=== PATIENT | female | born 1985 | race Caucasian/White ===

== ENCOUNTER 2018-02-23 18:58 | Emergency (ER) | payer BC, OTHER ==
[2018-02-23] MEDS ORDERED: SODIUM CHLORIDE 0.9% 1,000 ML IV ONE ×2 (19:43→23:10)
[2018-02-23 20:33] LABS: Basophils # (A) 0.1 k/uL (0-0.2); Basophils % (A) 1 %; Eosinophils # (A) 0.4 k/uL (0-0.7); Eosinophils % (A) 4 %; HCT 39.8 % (34.0-46.0); HGB 13.3 gm/dL (11.4-16.0); Lymphocytes # (A) 3.4 k/uL (1.0-4.8); Lymphocytes % (A) 32 %; MCH 27.8 pg (25.0-35.0); MCHC 33.5 g/dL (31.0-37.0); Mean Platelet Volume 7.7; Monocytes # (A) 0.7 k/uL (0-1.0); Monocytes % (A) 7 %; Neutrophils # (A) 5.7 k/uL (1.3-7.7); Neutrophils % (A) 53 %; Platelet Count 358 k/uL (150-450); RBC 4.79 m/uL (3.80-5.40); RDW 13.9 % (11.5-15.5); WBC 10.6 k/uL (3.8-10.6)
[2018-02-23 20:43] LABS: ALT 87 U/L (9-52); AST 48 U/L (14-36); Acetaminophen <10.0 ug/mL; Albumin 4.4 g/dL (3.5-5.0); Alkaline Phosphatase 90 U/L (38-126); Anion Gap 11 mmol/L; Blood Urea Nitrogen 11 mg/dL (7-17); Calcium 9.3 mg/dL (8.4-10.2); Carbon Dioxide 20 mmol/L (22-30); Chloride 110 mmol/L (98-107); Glucose 134 mg/dL (74-99); Potassium 4.4 mmol/L (3.5-5.1); Salicylate <1.0 mg/dL; Sodium 141 mmol/L (137-145); Total Bilirubin 0.3 mg/dL (0.2-1.3); Total Protein 7.7 g/dL (6.3-8.2)
[2018-02-23] MEDS ORDERED: ZIPRASIDONE 20 MG VIAL IM STA (20:56)
[2018-02-23] MEDS ORDERED: diphenhydrAMINE 50 MG/ML 1 ML VIAL IM STA (20:57)
[2018-02-23] MEDS ORDERED: LORazepam 2 MG/ML INJ IM STA (20:57)
--- NOTE | 2018-02-23 21:48 | ED ---
Psych HPI - General Source: patient, family Mode of arrival: ambulatory <Ligia Iglesias - Last Filed: 02/24/18 04:18> <Joseph Clark - Last Filed: 02/24/18 15:46> <Héctor Clifton - Last Filed: 02/25/18 00:14> <Phil Anaya - Last Filed: 02/25/18 09:06> - General Chief Complaint: Psychiatric Symptoms Stated Complaint: Mental Health,Overdose Time Seen by Provider: 02/23/18 19:09 - History of Present Illness Initial Comments: 32-year-old female past HISTORY of previous suicidal ideations and attempts as well as bipolar disorder, ETOH abuse, depression and PTSD presents today for chief complaint of suicidal ideations. Mother states that patient Has been 4 days sober, she began drinking Saturday. She states that yesterday she attempted to visit patient however she had not got a response from patient who was staying at her father's house. Today she called patient who told mother not to come over. Patient mother presented to father's house, states patient had a fifth of alcohol that was 1/3 full. She poured out the ETOH and patient then locked herself in a room cutting the right side of her neck. Father and mother brought pt to emergency department for evaluation. Upon arrival pt is cryng uncontrollable. pt refuses to answer questions, pt is a poor historian, stating one minute that she took pills the next that she didnt. Wont specify what type of pills. Pt does not appear to be in respiratory distress. Patient denies any current or recent homicidal thoughts, fever, chills, shortness of breath, chest pain, back pain, abdominal pain, nausea or vomiting, numbness or tingling, dysuria or hematuria, constipation or diarrhea, headaches or visual changes, or any other complaints. (Ligia Iglesias) - Related Data Home Medications Medication Instructions Recorded Confirmed Desvenlafaxine [Pristiq ER] 100 mg PO DAILY 02/23/18 02/23/18 LORazepam [Ativan] 1 mg PO DAILY 02/23/18 02/23/18 LORazepam [Ativan] 2 mg PO HS 02/23/18 02/23/18 Levothyroxine Sodium [Synthroid] 125 mcg PO DAILY 02/23/18 02/23/18 Lisinopril 30 mg PO DAILY 02/23/18 02/23/18 Mirtazapine [Remeron] 15 mg PO HS 02/23/18 02/23/18 OXcarbazepine [Trileptal] 150 mg PO TID 02/23/18 02/23/18 Paliperidone [Invega] 3 mg PO BID 02/23/18 02/23/18 Pantoprazole Sodium [Protonix] 20 mg PO DAILY 02/23/18 02/23/18 diphenhydrAMINE HCL [Benadryl] 50 mg PO HS PRN 02/23/18 02/23/18 Allergies Allergy/AdvReac Type Severity Reaction Status Date / Time asenapine maleate Allergy Anaphylaxis Verified 02/23/18 21:26 [From Saphris] risperidone Allergy Unknown Verified 02/23/18 21:26 Review of Systems ROS Other: All systems not noted in ROS Statement are negative. Constitutional: Denies: fever, chills Eyes: Denies: eye pain ENT: Denies: ear pain, throat pain Respiratory: Denies: cough, dyspnea Cardiovascular: Denies: chest pain, palpitations Endocrine: Denies: fatigue Gastrointestinal: Denies: abdominal pain, nausea, vomiting, diarrhea, constipation Genitourinary: Denies: urgency, dysuria, frequency, hematuria Musculoskeletal: Denies: back pain Skin: Denies: rash, lesions Neurological: Denies: headache, weakness Psychiatric: Reports: anxiety, depression, suicidal thoughts. Denies: homicidal thoughts <Ligia Iglesias - Last Filed: 02/24/18 04:18> ROS Other: All systems not noted in ROS Statement are negative. <Joseph Clark - Last Filed: 02/24/18 15:46> ROS Other: All systems not noted in ROS Statement are negative. <Héctor Clifton - Last Filed: 02/25/18 00:14> ROS Other: All systems not noted in ROS Statement are negative. <Phil Anaya - Last Filed: 02/25/18 09:06> ROS Statement: Those systems with pertinent positive or pertinent negative responses have been documented in the HPI. Past Medical History Past Medical History: Hypertension, Thyroid Disorder Additional Past Medical History / Comment(s): alcoholism History of Any Multi-Drug Resistant Organisms: None Reported Past Surgical History: No Surgical Hx Reported Past Psychological History: Anxiety, Bipolar Smoking Status: Never smoker Past Alcohol Use History: Abuse, Daily Past Drug Use History: None Reported - Past Family History Father Additional Family Medical History / Comment(s): Father is alive at age 60 with no major medical problems. Mother Additional Family Medical History / Comment(s): Mother is alive at age 55 with no major medical problems. Brother(s) Additional Family Medical History / Comment(s): Patient does not have any brothers. Sister(s) Additional Family Medical History / Comment(s): She has one sister with no major medical problems. Patient does not have any children. <Ligia Iglesias James - Last Filed: 02/24/18 04:18> General Exam Limitations: no limitations <Francisca Iglesiashua Ramirez - Last Filed: 02/24/18 04:18> <Joseph Clark - Last Filed: 02/24/18 15:46> <Héctor Clifton - Last Filed: 02/25/18 00:14> <Phil Anaya - Last Filed: 02/25/18 09:06> - General Exam Comments Initial Comments: General: The patient is awake and alert, pt crying uncontrollably, thrashing around, patient is DNR written on the left forearm Eye: +3 mm pupils are equal, round and reactive to light, extra-ocular movements are intact. No nystagmus. There is normal conjunctiva bilaterally. No signs of icterus. Ears, nose, mouth and throat: There are moist mucous membranes and no oral lesions. Neck: The neck is supple, there is no tenderness or JVD. 3 superficial linear cuts on neck, scabbed over. No active bleeding. Superficial. Cardiovascular: There is a regular rate and rhythm. No murmur, rub or gallop is appreciated. Respiratory: Lungs are clear to auscultation, respirations are non-labored, breath sounds are equal. No wheezes, stridor, rales, or rhonchi. Gastrointestinal: Obese, Soft, non-distended, non-tender abdomen without masses or organomegaly noted. There is no rebound or guarding present. No CVA tenderness. Bowel sounds are unremarkable. Musculoskeletal: Normal ROM, no tenderness. Strength 5/5. Sensation intact. Radial pulses equal bilaterally 2+. Neurological: A&O x 3. CN II-XII intact, There are no obvious motor or sensory deficits. Coordination appears grossly intact. Speech is normal. Skin: Skin is warm and dry and no rashes or lesions are noted. Superficial cuts along the right side of neck. Psychiatric: Thrashing around, sobbing, wont make eye contact a long (Ligia Iglesias) Course <Ligia Iglesias - Last Filed: 02/24/18 04:18> <Joseph Clark - Last Filed: 02/24/18 15:46> <Héctor Clifton - Last Filed: 02/25/18 00:14> <Phil Anaya - Last Filed: 02/25/18 09:06> Vital Signs 02/23/18 02/23/18 02/23/18 19:03 21:09 23:13 Temperature 98.4 F Pulse Rate 131 H 128 H 113 H Respiratory 14 22 16 Rate Blood Pressure 118/79 115/67 O2 Sat by Pulse 98 95 Oximetry 02/24/18 02/24/18 02/24/18 01:47 05:32 10:32 Temperature 99.2 F Pulse Rate 113 H 96 102 H Respiratory 17 Rate Blood Pressure 143/66 O2 Sat by Pulse 95 Oximetry - Reevaluation(s) Reevaluation #1: Pt pulled out IV, screaming, attempting to leave. Dr. Llanes evaluated pt face- to-face, restaints placed. Pt given IM benadryl and 2mg Ativan IM. (Ligia Iglesias) 02/25/18 09:05 The patient rested comfortably throughout the evening and early childhood special educator. I did fill out a new physician clinical certification. Patient is pending transfer ( Phil Anaya) Reevaluation #2: Lactic 2.5, pt refuses IV, pt still thrashing around bed- will rbolus pt when pt allows IV placement. 20mg IM geodone administered. Pt tachycardic however refused EKG, will not sit still. Remains tachy ~120 (Ligia Iglesias) Reevaluation #3: Restaints removed, pt sleeping. EKG obtained, sinus tachycardia 02/23/18 (Ligia Iglesias) Reevaluation #4: Pt resting comfortably, restraints removed. Pt compliant. Repeat lactic 1.1 after fluid bolus. Pt appears well. Medically cleared. EPS aware. 02/24/18 01:34 (Ligia Iglesias) Procedures - Restraint - Face to Face Restraint Occurrence 1 Patient's Immediate Situation: Endangers self safety, Endangers others' safety, Endangers staff safety Patient's Reaction to the Intervention: Uncooperative, Angry, Hostile, Combative Patient's Medical & Behavioral Condition: Agitated, Suicidal thoughts Need to Continue or Terminate Restraint or Seclusion: Terminate Face to Face Eval of Restraint Date: 02/24/18 Face to Face Eval of Restraint Time: 20:45 <Ligia Iglesias - Last Filed: 02/24/18 04:18> Medical Decision Making - Lab Data Result diagrams: 02/23/18 19:54 02/23/18 19:54 <Ligia Iglesias - Last Filed: 02/24/18 04:18> - Lab Data Result diagrams: 02/23/18 19:54 02/23/18 19:54 <Joseph Clark - Last Filed: 02/24/18 15:46> - Lab Data Result diagrams: 02/23/18 19:54 02/23/18 19:54 <Héctor Clifton - Last Filed: 02/25/18 00:14> - Lab Data Result diagrams: 02/23/18 19:54 02/23/18 19:54 <Phil Anaya - Last Filed: 02/25/18 09:06> - Medical Decision Making Pt with suicidal thoughts/attempt presenting with mom for evaluation. Pt states she ingested pills initially then denied. Wont state what type of pills. Salicytate and acetaminophen (-). Pt had to be restrained when she became combative in attempt to leave. Dr. Llanes did face to face prior to restraints. Lactic 2.5. Repeat 1.1 after bolus. Pt became cooperative, resting comfortably. Restraints removed. EPS contacted after pt medically cleared. Recommended admission, no available beds. Pt pending transfer. I agree with admission as pt is a risk to herself. (Ligia Iglesias) Dr. Clifton will take over the care of this patient at 5pm (Joseph Clark) Psychiatric nurse making efforts to get the patient admitted here or elsewhere. The patient show a different county and that they want the patient to go to another facility. They are working on the problem as well. Vital signs stable. Dr. Clifton (Héctor Clifton) - Lab Data Lab Results 02/23/18 02/23/18 02/23/18 Range/Units 19:54 19:54 19:54 WBC 10.6 (3.8-10.6) k/uL RBC 4.79 (3.80-5.40) m/uL Hgb 13.3 (11.4-16.0) gm/dL Hct 39.8 (34.0-46.0) % MCV 83.0 (80.0-100.0) fL MCH 27.8 (25.0-35.0) pg MCHC 33.5 (31.0-37.0) g/dL RDW 13.9 (11.5-15.5) % Plt Count 358 (150-450) k/uL Neutrophils % 53 % Lymphocytes % 32 % Monocytes % 7 % Eosinophils % 4 % Basophils % 1 % Neutrophils # 5.7 (1.3-7.7) k/uL Lymphocytes # 3.4 (1.0-4.8) k/uL Monocytes # 0.7 (0-1.0) k/uL Eosinophils # 0.4 (0-0.7) k/uL Basophils # 0.1 (0-0.2) k/uL Sodium 141 (137-145) mmol/L Potassium 4.4 (3.5-5.1) mmol/L Chloride 110 H (98-107) mmol/L Carbon Dioxide 20 L (22-30) mmol/L Anion Gap 11 mmol/L BUN 11 (7-17) mg/dL Creatinine 0.78 (0.52-1.04) mg/dL Est GFR (CKD-EPI)AfAm >90 (>60 ml/min/1.73 sqM) Est GFR (CKD-EPI)NonAf >90 (>60 ml/min/1.73 sqM) Glucose 134 H (74-99) mg/dL Lactic Ac Sepsis Rflx Plasma Lactic Acid Prince 2.5 H* (0.7-2.0) mmol/L Calcium 9.3 (8.4-10.2) mg/dL Total Bilirubin 0.3 (0.2-1.3) mg/dL AST 48 H (14-36) U/L ALT 87 H (9-52) U/L Alkaline Phosphatase 90 (38-126) U/L Total Protein 7.7 (6.3-8.2) g/dL Albumin 4.4 (3.5-5.0) g/dL Urine Color Urine Appearance (Clear) Urine pH (5.0-8.0) Ur Specific [place] (1.001-1.035) Urine Protein (Negative) Urine Glucose (UA) (Negative) Urine Ketones (Negative) Urine Blood (Negative) Urine Nitrite (Negative) Urine Bilirubin (Negative) Urine Urobilinogen (<2.0) mg/dL Ur Leukocyte Esterase (Negative) Urine HCG, Qual (Not Detectd) Salicylates <1.0 mg/dL Urine Opiates Screen (NotDetected) Ur Oxycodone Screen (NotDetected) Urine Methadone Screen (NotDetected) Ur Propoxyphene Screen (NotDetected) Acetaminophen <10.0 ug/mL Ur Barbiturates Screen (NotDetected) U Tricyclic Antidepress (NotDetected) Ur Phencyclidine Scrn (NotDetected) Ur Amphetamines Screen (NotDetected) U Methamphetamines Scrn (NotDetected) U Benzodiazepines Scrn (NotDetected) Urine Cocaine Screen (NotDetected) U Marijuana (THC) Screen (NotDetected) 02/23/18 02/23/18 02/23/18 Range/Units 20:51 23:20 23:20 WBC (3.8-10.6) k/uL RBC (3.80-5.40) m/uL Hgb (11.4-16.0) gm/dL Hct (34.0-46.0) % MCV (80.0-100.0) fL MCH (25.0-35.0) pg MCHC (31.0-37.0) g/dL RDW (11.5-15.5) % Plt Count (150-450) k/uL Neutrophils % % Lymphocytes % % Monocytes % % Eosinophils % % Basophils % % Neutrophils # (1.3-7.7) k/uL Lymphocytes # (1.0-4.8) k/uL Monocytes # (0-1.0) k/uL Eosinophils # (0-0.7) k/uL Basophils # (0-0.2) k/uL Sodium (137-145) mmol/L Potassium (3.5-5.1) mmol/L Chloride (98-107) mmol/L Carbon Dioxide (22-30) mmol/L Anion Gap mmol/L BUN (7-17) mg/dL Creatinine (0.52-1.04) mg/dL Est GFR (CKD-EPI)AfAm (>60 ml/min/1.73 sqM) Est GFR (CKD-EPI)NonAf (>60 ml/min/1.73 sqM) Glucose (74-99) mg/dL Lactic Ac Sepsis Rflx Y Plasma Lactic Acid Prince (0.7-2.0) mmol/L Calcium (8.4-10.2) mg/dL Total Bilirubin (0.2-1.3) mg/dL AST (14-36) U/L ALT (9-52) U/L Alkaline Phosphatase (38-126) U/L Total Protein (6.3-8.2) g/dL Albumin (3.5-5.0) g/dL Urine Color Yellow Urine Appearance Clear (Clear) Urine pH 5.5 (5.0-8.0) Ur Specific [place] 1.014 (1.001-1.035) Urine Protein Trace H (Negative) Urine Glucose (UA) Negative (Negative) Urine Ketones Negative (Negative) Urine Blood Negative (Negative) Urine Nitrite Negative (Negative) Urine Bilirubin Negative (Negative) Urine Urobilinogen <2.0 (<2.0) mg/dL Ur Leukocyte Esterase Negative (Negative) Urine HCG, Qual Not Detected (Not Detectd) Salicylates mg/dL Urine Opiates Screen Not Detected (NotDetected) Ur Oxycodone Screen Not Detected (NotDetected) Urine Methadone Screen Not Detected (NotDetected) Ur Propoxyphene Screen Not Detected (NotDetected) Acetaminophen ug/mL Ur Barbiturates Screen Not Detected (NotDetected) U Tricyclic Antidepress Not Detected (NotDetected) Ur Phencyclidine Scrn Not Detected (NotDetected) Ur Amphetamines Screen Not Detected (NotDetected) U Methamphetamines Scrn Not Detected (NotDetected) U Benzodiazepines Scrn Detected H (NotDetected) Urine Cocaine Screen Not Detected (NotDetected) U Marijuana (THC) Screen Detected H (NotDetected) 02/24/18 Range/Units 00:11 WBC (3.8-10.6) k/uL RBC (3.80-5.40) m/uL Hgb (11.4-16.0) gm/dL Hct (34.0-46.0) % MCV (80.0-100.0) fL MCH (25.0-35.0) pg MCHC (31.0-37.0) g/dL RDW (11.5-15.5) % Plt Count (150-450) k/uL Neutrophils % % Lymphocytes % % Monocytes % % Eosinophils % % Basophils % % Neutrophils # (1.3-7.7) k/uL Lymphocytes # (1.0-4.8) k/uL Monocytes # (0-1.0) k/uL Eosinophils # (0-0.7) k/uL Basophils # (0-0.2) k/uL Sodium (137-145) mmol/L Potassium (3.5-5.1) mmol/L Chloride (98-107) mmol/L Carbon Dioxide (22-30) mmol/L Anion Gap mmol/L BUN (7-17) mg/dL Creatinine (0.52-1.04) mg/dL Est GFR (CKD-EPI)AfAm (>60 ml/min/1.73 sqM) Est GFR (CKD-EPI)NonAf (>60 ml/min/1.73 sqM) Glucose (74-99) mg/dL Lactic Ac Sepsis Rflx Plasma Lactic Acid Prince 1.1 (0.7-2.0) mmol/L Calcium (8.4-10.2) mg/dL Total Bilirubin (0.2-1.3) mg/dL AST (14-36) U/L ALT (9-52) U/L Alkaline Phosphatase (38-126) U/L Total Protein (6.3-8.2) g/dL Albumin (3.5-5.0) g/dL Urine Color Urine Appearance (Clear) Urine pH (5.0-8.0) Ur Specific [place] (1.001-1.035) Urine Protein (Negative) Urine Glucose (UA) (Negative) Urine Ketones (Negative) Urine Blood (Negative) Urine Nitrite (Negative) Urine Bilirubin (Negative) Urine Urobilinogen (<2.0) mg/dL Ur Leukocyte Esterase (Negative) Urine HCG, Qual (Not Detectd) Salicylates mg/dL Urine Opiates Screen (NotDetected) Ur Oxycodone Screen (NotDetected) Urine Methadone Screen (NotDetected) Ur Propoxyphene Screen (NotDetected) Acetaminophen ug/mL Ur Barbiturates Screen (NotDetected) U Tricyclic Antidepress (NotDetected) Ur Phencyclidine Scrn (NotDetected) Ur Amphetamines Screen (NotDetected) U Methamphetamines Scrn (NotDetected) U Benzodiazepines Scrn (NotDetected) Urine Cocaine Screen (NotDetected) U Marijuana (THC) Screen (NotDetected) - EKG Data EKG Comments: A 12-lead EKG was performed and shows the following: Rate is 120, and rhythm is normal sinus. There are normal QRS complexes and normal R-wave progression. ST segments have no elevation or depression, and MI segments appear normal. Sinus tachycardia. (Ligia Iglesias) Disposition Is patient prescribed a controlled substance at d/c from ED?: No Time of Disposition: 04:03 Decision Date: 02/24/18 Decision Time: 04:03 <Ligia Iglesias - Last Filed: 02/24/18 04:18> <Joseph Clark - Last Filed: 02/24/18 15:46> <Héctor Clifton - Last Filed: 02/25/18 00:14> - Out of Hospital Transfer - Req. Specs Out of Hospital Transfer - Requested Specifics: Psychiatric Non-ICU <Phil Anaya - Last Filed: 02/25/18 09:06> Clinical Impression: Suicidal behavior, Depression, Substance abuse Disposition: TRANSFER TO PSYCH HOSP/UNIT Condition: Stable Referrals: Sandor Castro DO [Primary Care Provider] - 1-2 days
[2018-02-23 23:32] LABS: Appearance,Urine Clear (Clear); Bilirubin,Urine Negative (Negative); Blood,Urine Negative (Negative); Color,Urine Yellow; Glucose,Urine (UA) Negative (Negative); Ketones,Urine Negative (Negative); Leukocyte Esterase,Urine Negative (Negative); Nitrite,Urine Negative (Negative); PH, Urine 5.5 (5.0-8.0); Protein,Urine Trace (Negative); Specific Gravity,Urine 1.014 (1.001-1.035); Urobilinogen,Urine <2.0 mg/dL (<2.0)
[2018-02-23 23:42] LABS: Amphetamine Screen,Urine Not Detected (NotDetected); Barbiturate Screen,Urine Not Detected (NotDetected); Benzodiazepines Screen,Urine Detected (NotDetected); Cocaine Screen,Urine Not Detected (NotDetected); Methadone Screen, Urine Not Detected (NotDetected); Opiate Screen,Urine Not Detected (NotDetected); Oxycodone Screen, Urine Not Detected (NotDetected); Phencyclidine Screen,Urine Not Detected (NotDetected); Tricyclic Antidepressant,Urine Not Detected (NotDetected); Urn Cannabinoid Scrn Detected (NotDetected)
[2018-02-24] MEDS ORDERED: LEVOTHYROXINE 125 MCG TAB PO ONE (14:15)
[2018-02-24] MEDS ORDERED: OXcarbazepine 150 MG TAB PO ONE (14:30)
[2018-02-24] MEDS ORDERED: LISINOPRIL 10 MG TAB PO ONE (14:30)
[2018-02-24] MEDS ORDERED: DESVENLAFAXINE SUCCINATE 50 MG TAB.ER.24H PO ONE (14:30)
[2018-02-24] MEDS ORDERED: PANTOPRAZOLE 40 MG TABLET PO ONE (14:30)
[2018-02-24] MEDS ORDERED: PALIPERIDONE 3 MG TAB.ER.24 PO ONE (14:45)
[2018-02-24] MEDS ORDERED: diphenhydrAMINE 50 MG/ML 1 ML VIAL IM STA (19:03)
[2018-02-24] MEDS ORDERED: LORazepam 2 MG/ML INJ IM STA (19:03)
[2018-02-24] MEDS ORDERED: LORazepam 1 MG TAB PO SCH (21:00)
[2018-02-24] MEDS ORDERED: diphenhydrAMINE 25 MG CAP PO PRN (21:00)
[2018-02-24] MEDS ORDERED: MIRTAZAPINE 15 MG TAB PO STA (22:22)
[2018-02-25] MEDS: PALIPERIDONE 3 MG TAB.ER.24 PO SCH ×2 (01:34→10:46)
[2018-02-25] MEDS: OXcarbazepine 150 MG TAB PO SCH ×2 (01:34→10:45)
[2018-02-25] MEDS ORDERED: LEVOTHYROXINE 125 MCG TAB PO SCH (06:30)
[2018-02-25] MEDS ORDERED: LORazepam 1 MG TAB PO SCH (09:00)
[2018-02-25 09:19] VITALS: BP 121/69; PULSE 84; RESP 16; TEMP 98
[2018-02-25] MEDS ORDERED: PANTOPRAZOLE 40 MG TABLET PO SCH (10:15)
[2018-02-25] MEDS ORDERED: DESVENLAFAXINE SUCCINATE 50 MG TAB.ER.24H PO SCH (10:15)
[2018-02-25] MEDS ORDERED: LISINOPRIL 10 MG TAB PO SCH (10:15)
--- NOTE | 2018-02-25 11:38 | ED ---
Medical Decision Making - Medical Decision Making I did fill out transfer forms for the patient she will [facility] going to [facility]. - Lab Data Result diagrams: 02/23/18 19:54 02/23/18 19:54 Lab Results 02/23/18 02/23/18 02/23/18 Range/Units 19:54 19:54 19:54 WBC 10.6 (3.8-10.6) k/uL RBC 4.79 (3.80-5.40) m/uL Hgb 13.3 (11.4-16.0) gm/dL Hct 39.8 (34.0-46.0) % MCV 83.0 (80.0-100.0) fL MCH 27.8 (25.0-35.0) pg MCHC 33.5 (31.0-37.0) g/dL RDW 13.9 (11.5-15.5) % Plt Count 358 (150-450) k/uL Neutrophils % 53 % Lymphocytes % 32 % Monocytes % 7 % Eosinophils % 4 % Basophils % 1 % Neutrophils # 5.7 (1.3-7.7) k/uL Lymphocytes # 3.4 (1.0-4.8) k/uL Monocytes # 0.7 (0-1.0) k/uL Eosinophils # 0.4 (0-0.7) k/uL Basophils # 0.1 (0-0.2) k/uL Sodium 141 (137-145) mmol/L Potassium 4.4 (3.5-5.1) mmol/L Chloride 110 H (98-107) mmol/L Carbon Dioxide 20 L (22-30) mmol/L Anion Gap 11 mmol/L BUN 11 (7-17) mg/dL Creatinine 0.78 (0.52-1.04) mg/dL Est GFR (CKD-EPI)AfAm >90 (>60 ml/min/1.73 sqM) Est GFR (CKD-EPI)NonAf >90 (>60 ml/min/1.73 sqM) Glucose 134 H (74-99) mg/dL Lactic Ac Sepsis Rflx Plasma Lactic Acid Prince 2.5 H* (0.7-2.0) mmol/L Calcium 9.3 (8.4-10.2) mg/dL Total Bilirubin 0.3 (0.2-1.3) mg/dL AST 48 H (14-36) U/L ALT 87 H (9-52) U/L Alkaline Phosphatase 90 (38-126) U/L Total Protein 7.7 (6.3-8.2) g/dL Albumin 4.4 (3.5-5.0) g/dL Urine Color Urine Appearance (Clear) Urine pH (5.0-8.0) Ur Specific [place] (1.001-1.035) Urine Protein (Negative) Urine Glucose (UA) (Negative) Urine Ketones (Negative) Urine Blood (Negative) Urine Nitrite (Negative) Urine Bilirubin (Negative) Urine Urobilinogen (<2.0) mg/dL Ur Leukocyte Esterase (Negative) Urine HCG, Qual (Not Detectd) Salicylates <1.0 mg/dL Urine Opiates Screen (NotDetected) Ur Oxycodone Screen (NotDetected) Urine Methadone Screen (NotDetected) Ur Propoxyphene Screen (NotDetected) Acetaminophen <10.0 ug/mL Ur Barbiturates Screen (NotDetected) U Tricyclic Antidepress (NotDetected) Ur Phencyclidine Scrn (NotDetected) Ur Amphetamines Screen (NotDetected) U Methamphetamines Scrn (NotDetected) U Benzodiazepines Scrn (NotDetected) Urine Cocaine Screen (NotDetected) U Marijuana (THC) Screen (NotDetected) 02/23/18 02/23/18 02/23/18 Range/Units 20:51 23:20 23:20 WBC (3.8-10.6) k/uL RBC (3.80-5.40) m/uL Hgb (11.4-16.0) gm/dL Hct (34.0-46.0) % MCV (80.0-100.0) fL MCH (25.0-35.0) pg MCHC (31.0-37.0) g/dL RDW (11.5-15.5) % Plt Count (150-450) k/uL Neutrophils % % Lymphocytes % % Monocytes % % Eosinophils % % Basophils % % Neutrophils # (1.3-7.7) k/uL Lymphocytes # (1.0-4.8) k/uL Monocytes # (0-1.0) k/uL Eosinophils # (0-0.7) k/uL Basophils # (0-0.2) k/uL Sodium (137-145) mmol/L Potassium (3.5-5.1) mmol/L Chloride (98-107) mmol/L Carbon Dioxide (22-30) mmol/L Anion Gap mmol/L BUN (7-17) mg/dL Creatinine (0.52-1.04) mg/dL Est GFR (CKD-EPI)AfAm (>60 ml/min/1.73 sqM) Est GFR (CKD-EPI)NonAf (>60 ml/min/1.73 sqM) Glucose (74-99) mg/dL Lactic Ac Sepsis Rflx Y Plasma Lactic Acid Prince (0.7-2.0) mmol/L Calcium (8.4-10.2) mg/dL Total Bilirubin (0.2-1.3) mg/dL AST (14-36) U/L ALT (9-52) U/L Alkaline Phosphatase (38-126) U/L Total Protein (6.3-8.2) g/dL Albumin (3.5-5.0) g/dL Urine Color Yellow Urine Appearance Clear (Clear) Urine pH 5.5 (5.0-8.0) Ur Specific [place] 1.014 (1.001-1.035) Urine Protein Trace H (Negative) Urine Glucose (UA) Negative (Negative) Urine Ketones Negative (Negative) Urine Blood Negative (Negative) Urine Nitrite Negative (Negative) Urine Bilirubin Negative (Negative) Urine Urobilinogen <2.0 (<2.0) mg/dL Ur Leukocyte Esterase Negative (Negative) Urine HCG, Qual Not Detected (Not Detectd) Salicylates mg/dL Urine Opiates Screen Not Detected (NotDetected) Ur Oxycodone Screen Not Detected (NotDetected) Urine Methadone Screen Not Detected (NotDetected) Ur Propoxyphene Screen Not Detected (NotDetected) Acetaminophen ug/mL Ur Barbiturates Screen Not Detected (NotDetected) U Tricyclic Antidepress Not Detected (NotDetected) Ur Phencyclidine Scrn Not Detected (NotDetected) Ur Amphetamines Screen Not Detected (NotDetected) U Methamphetamines Scrn Not Detected (NotDetected) U Benzodiazepines Scrn Detected H (NotDetected) Urine Cocaine Screen Not Detected (NotDetected) U Marijuana (THC) Screen Detected H (NotDetected) 02/24/18 Range/Units 00:11 WBC (3.8-10.6) k/uL RBC (3.80-5.40) m/uL Hgb (11.4-16.0) gm/dL Hct (34.0-46.0) % MCV (80.0-100.0) fL MCH (25.0-35.0) pg MCHC (31.0-37.0) g/dL RDW (11.5-15.5) % Plt Count (150-450) k/uL Neutrophils % % Lymphocytes % % Monocytes % % Eosinophils % % Basophils % % Neutrophils # (1.3-7.7) k/uL Lymphocytes # (1.0-4.8) k/uL Monocytes # (0-1.0) k/uL Eosinophils # (0-0.7) k/uL Basophils # (0-0.2) k/uL Sodium (137-145) mmol/L Potassium (3.5-5.1) mmol/L Chloride (98-107) mmol/L Carbon Dioxide (22-30) mmol/L Anion Gap mmol/L BUN (7-17) mg/dL Creatinine (0.52-1.04) mg/dL Est GFR (CKD-EPI)AfAm (>60 ml/min/1.73 sqM) Est GFR (CKD-EPI)NonAf (>60 ml/min/1.73 sqM) Glucose (74-99) mg/dL Lactic Ac Sepsis Rflx Plasma Lactic Acid [place] 1.1 (0.7-2.0) mmol/L Calcium (8.4-10.2) mg/dL Total Bilirubin (0.2-1.3) mg/dL AST (14-36) U/L ALT (9-52) U/L Alkaline Phosphatase (38-126) U/L Total Protein (6.3-8.2) g/dL Albumin (3.5-5.0) g/dL Urine Color Urine Appearance (Clear) Urine pH (5.0-8.0) Ur Specific [place] (1.001-1.035) Urine Protein (Negative) Urine Glucose (UA) (Negative) Urine Ketones (Negative) Urine Blood (Negative) Urine Nitrite (Negative) Urine Bilirubin (Negative) Urine Urobilinogen (<2.0) mg/dL Ur Leukocyte Esterase (Negative) Urine HCG, Qual (Not Detectd) Salicylates mg/dL Urine Opiates Screen (NotDetected) Ur Oxycodone Screen (NotDetected) Urine Methadone Screen (NotDetected) Ur Propoxyphene Screen (NotDetected) Acetaminophen ug/mL Ur Barbiturates Screen (NotDetected) U Tricyclic Antidepress (NotDetected) Ur Phencyclidine Scrn (NotDetected) Ur Amphetamines Screen (NotDetected) U Methamphetamines Scrn (NotDetected) U Benzodiazepines Scrn (NotDetected) Urine Cocaine Screen (NotDetected) U Marijuana (THC) Screen (NotDetected) Disposition Clinical Impression: Suicidal behavior, Depression, Substance abuse Disposition: TRANSFER TO PSYCH HOSP/UNIT Condition: Stable Referrals: Sandor Castro DO [Primary Care Provider] - 1-2 days
== END 2018-02-25 12:15 ==
LOC: EC 18:58
DX: R45.851 Suicidal ideations (principal); S11.91XA Laceration without foreign body of unspecified part of neck, initial encounter; R00.0 Tachycardia, unspecified; R45.1 Restlessness and agitation; R45.83 Excessive crying of child, adolescent or adult; I10 Essential (primary) hypertension; E07.9 Disorder of thyroid, unspecified; F10.20 Alcohol dependence, uncomplicated; F31.9 Bipolar disorder, unspecified; F41.9 Anxiety disorder, unspecified; Z88.8 Allergy status to other drugs, medicaments and biological substances; Z79.899 Other long term (current) drug therapy; X78.9XXA Intentional self-harm by unspecified sharp object, initial encounter
CPT/HCPCS: 96372 ×6; 96360 ×2; 99285 ×2; 82075; 36415; 93005; 80053; 83605 ×2; 85025; 81003; 81025; 80306; 83520 ×2; J2060 ×2; J1200 ×2; J3486